=== PATIENT | female | born 1975 | race Caucasian/White ===

== ENCOUNTER 2018-02-05 21:47 | Emergency (ER) | payer BC, OTHER ==
--- NOTE | 2018-02-05 22:22 | EDM.PDOC ---
ED HPI GENERAL MEDICAL PROBLEM - General Chief Complaint: Upper Extremity Injury/Pain Stated Complaint: POSSIBLE BROKEN LEFT HAND, ALSO HIT HEAD Time Seen by Provider: 02/05/18 22:00 - History of Present Illness INITIAL COMMENTS - FREE TEXT/NARRATIVE: HISTORY AND PHYSICAL: History of present illness: Patient's 43-year-old female presents concerned status post fall rollerskating injuring her left wrist donating her head she denies loss consciousness nausea vomiting denies other trauma or concern. Review of systems: As per history of present illness and below otherwise all systems reviewed and negative. Past medical history: As per history of present illness and as reviewed below otherwise noncontributory. Surgical history: As per history of present illness and as reviewed below otherwise noncontributory. Social history: No reported history of drug or alcohol abuse. Family history: As per history of present illness and as reviewed below otherwise noncontributory. Physical exam: HEENT: Atraumatic, normocephalic, pupils reactive, negative for conjunctival pallor or scleral icterus, mucous membranes moist, throat clear, neck supple, nontender, trachea midline. Lungs: Clear to auscultation, breath sounds equal bilaterally, chest nontender. Heart: S1S2, regular, negative for clicks, rubs, or JVD. Abdomen: Soft, nondistended, nontender. Negative for masses or hepatosplenomegaly. Negative for costovertebral tenderness. Pelvis: Stable nontender. Genitourinary: Deferred. Rectal: Deferred. Extremities: Left wrist is tenderness over the dorsal aspect no point tenderness no crepitation CMS neurovascular is unremarkable is no snuffbox tenderness Neuro: Awake, alert, oriented. Cranial nerves II through XII unremarkable. Cerebellum unremarkable. Motor and sensory unremarkable throughout. Exam nonfocal. Diagnostics: X-ray left wrist CT brain deferred by patient Therapeutics: To be determined Impression: #1 observation status post fall #2 acute left wrist injury #3 minor head injury Definitive disposition and diagnosis as appropriate pending reevaluation and review of above. left hand Pain Score (Numeric/FACES): 5 - Related Data Allergies Allergy/AdvReac Type Severity Reaction Status Date / Time Sulfa (Sulfonamide Allergy Rash Verified 02/05/18 22:12 Antibiotics) Home Meds: Home Meds Citalopram Hydrobromide [Celexa] 30 mg PO 02/05/18 [History] Topiramate [Topamax] 50 mg PO DAILY 02/05/18 [History] Review of Systems - Review of Systems Review Of Systems: ROS reveals no pertinent complaints other than HPI. ED EXAM, GENERAL - Physical Exam Exam: See Below (See dictation) Course - Vital Signs Last Recorded V/S: Last Vital Signs Temp 36.6 C 02/05/18 22:10 Pulse 69 02/05/18 22:10 Resp 18 02/05/18 22:10 BP 110/69 02/05/18 22:10 Pulse Ox 98 02/05/18 22:10 - Orders/Labs/Meds Orders: Active Orders 24 hr Category Date Time Status Wrist 2V Lt [CR] Stat Exams 02/05/18 22:19 Taken Departure - Departure Time of Disposition: 00:32 Disposition: Home, Self-Care 01 Condition: Good Clinical Impression: Wrist injury - Discharge Information Referrals: PCP,None [Primary Care Provider] - Forms: ED Department Discharge Additional Instructions: The following information is given to patients seen in the emergency department who are being discharged to home. This information is to outline your options for follow-up care. We provide all patients seen in our emergency department with a follow-up referral. The need for follow-up, as well as the timing and circumstances, are variable depending upon the specifics of your emergency department visit. If you don't have a primary care physician on staff, we will provide you with a referral. We always advise you to contact your personal physician following an emergency department visit to inform them of the circumstance of the visit and for follow-up with them and/or the need for any referrals to a consulting specialist. The emergency department will also refer you to a specialist when appropriate. This referral assures that you have the opportunity for followup care with a specialist. All of these measure are taken in an effort to provide you with optimal care, which includes your followup. Under all circumstances we always encourage you to contact your private physician who remains a resource for coordinating your care. When calling for followup care, please make the office aware that this follow-up is from your recent emergency room visit. If for any reason you are refused follow-up, please contact the [facility] emergency department at and asked to speak to the emergency department charge nurse. Splint as directed Motrin/Tylenol as directed follow-up private medical doctor return as needed as discussed[] - My Orders Last 24 Hours: My Active Orders 02/05/18 22:19 Wrist 2V Lt [CR] Stat - Assessment/Plan Last 24 Hours: My Active Orders 02/05/18 22:19 Wrist 2V Lt [CR] Stat
--- NOTE | 2018-02-06 09:37 | CR ---
EXAM DATE: 02/05/18 PATIENT'S AGE: 42 Patient: KEHINDE LUBIN Facility: [place], [place] Site . Site : [id number] Study: XRay Extremity Left WRIST [id number]/13/2018 10:39:13 PM Ordering Physician: Dahiana Talavera Final Report: INDICATION: L wrist pain TECHNIQUE: Two views of the left wrist COMPARISON: None FINDINGS: Bones: No fractures or bone lesions. Joint spaces: Unremarkable. Soft tissues: Unremarkable. IMPRESSION: No acute bony abnormality Dictated by Dusty Farrar MD @ 02/05/2018 10:53:12 PM Dictated by: Dusty Farrar MD @ 02/05/2018 22:57:27 (Electronic Signature) Report Signed by Proxy. [facility] HOSPITALAntoinette
== END 2018-02-06 01:25 | disposition home or self-care (01) ==
LOC: MW.ED 21:47
DX: S69.92XA Unspecified injury of left wrist, hand and finger(s), initial encounter (principal); Z88.2 Allergy status to sulfonamides; Z79.899 Other long term (current) drug therapy; W19.XXXA Unspecified fall, initial encounter; Y93.51 Activity, roller skating (inline) and skateboarding
CPT/HCPCS: 73100-26-LT; 73100-LT; 99283